=== PATIENT | female | born 1945 | race Caucasian/White ===

== ENCOUNTER → 2017-09-04 | Outpatient (CLI) | payer MEDICARE ==
[~2017-09-04] MED LIST: OMNIPAQUE 350 MG/ML, 100ML BOTTLE ONE
== END | disposition home or self-care (01) ==
LOC: RAD 14:43
PROVIDERS: ATTEND Family Medicine
DX: K86.89 Other specified diseases of pancreas (principal); K44.9 Diaphragmatic hernia without obstruction or gangrene; K76.89 Other specified diseases of liver
CPT/HCPCS: 74177; Q9967

== ENCOUNTER 2017-09-11 09:28 | Day surgery (SDC) | payer MEDICARE ==
[~2017-09-11] VITALS: Ht 167.6 cm; Wt 77.5 kg
[2017-09-11] MEDS ORDERED: CALC-451 PO (10:09)
[2017-09-11] MEDS ORDERED: LEVO125T PO (10:09)
[2017-09-11] MEDS ORDERED: LORA0.5P PO (10:09)
[2017-09-11] MEDS ORDERED: ESCI20TA10 PO (10:09)
[2017-09-11] MEDS ORDERED: ZOLP-413 PO (10:09)
[2017-09-11] MEDS ORDERED: PANT40TA5 PO (10:09)
[2017-09-11] MEDS ORDERED: CHLO4TAB PO (10:09)
[2017-09-11] MEDS ORDERED: POLY17PO5 PO (10:09)
[2017-09-11 10:17] VITALS: BP 127/75
[2017-09-11] MEDS ORDERED: FENTANYL PF 100 MCG/2ML ONE (10:20)
[2017-09-11] MEDS ORDERED: MIDAZOLAM 1 MG/ML, 2ML ONE (10:20)
[2017-09-11] MEDS ORDERED: LACTATED RINGERS 1,000 ML IV SCH (10:35)
[2017-09-11] MEDS ORDERED: GLYCOPYRROLATE 0.2MG/1ML, 5ML ONE (11:09)
[2017-09-11] MEDS ORDERED: EPHEDRINE 50 MG/ML, 1ML ONE (11:09)
[2017-09-11] MEDS ORDERED: PHENYLEPHRINE 10 MG/ML ONE (11:09)
[2017-09-11] MEDS ORDERED: SUCCINYLCHOLINE 20 MG/ML, 10ML ONE (11:27)
[2017-09-11] MEDS ORDERED: ONDANSETRON 2MG/ML, 2ML ONE (11:27)
[2017-09-11] MEDS ORDERED: ROCURONIUM 10 MG/ML,10ML ONE (11:27)
[2017-09-11] MEDS ORDERED: DEXAMETHASONE 4 MG/ML, 1ML ONE (11:27)
[2017-09-11] MEDS ORDERED: PROPOFOL 10 MG/ML, 20ML ONE (11:27)
[2017-09-11] MEDS ORDERED: OMNIPAQUE 350 MG/ML, 50 ML BOTTLE ONE (13:37)
[2017-09-11] MEDS ORDERED: HYDROcodone/APAP 7.5-325MG/15ML UDC PO PRN (14:00)
[2017-09-11] MEDS ORDERED: ONDANSETRON 2MG/ML, 2ML IVPush PRN (14:00)
[2017-09-11] MEDS ORDERED: ACETAMINOPHEN 325 MG TABLET PO PRN (14:00)
[2017-09-11] MEDS ORDERED: FENTANYL PF 100 MCG/2ML IV PRN (14:00)
[2017-09-11] MEDS ORDERED: OXYcodone 5 MG/5 ML ORAL.SOL UDC PO PRN (14:00)
== END 2017-09-11 16:35 | disposition home or self-care (01) ==
LOC: OUT 09:28
PROVIDERS: ATTEND Internal Medicine
DX: C25.9 Malignant neoplasm of pancreas, unspecified (principal); K83.1 Obstruction of bile duct; F41.9 Anxiety disorder, unspecified; Z87.39 Personal history of other diseases of the musculoskeletal system and connective tissue; Z98.890 Other specified postprocedural states; Z88.8 Allergy status to other drugs, medicaments and biological substances
CPT/HCPCS: 43242; 43274; 74018; 76000; 88172; 88173; 88177; 88307; 93005; J0330; J1100; J2250; J2370; J2405; J2704; J3010; J7120; Q9967; J3490; C1769; C2625

== ENCOUNTER 2017-10-10 07:42 | Day surgery (SDC) | payer MEDICARE ==
[~2017-10-10] VITALS: Ht 165.1 cm; Wt 76.4 kg
[~2017-10-10 07:42] MED LIST changes: +CALC-451 PO; +CHLO4TAB PO; +ESCI20TA10 PO; +LEVO125T PO; +LORA0.5P PO; -OMNIPAQUE 350 MG/ML, 100ML BOTTLE ONE; +PANT40TA5 PO; +POLY17PO5 PO; +ZOLP-413 PO
[2017-10-10 08:08] VITALS: BP 125/78
[2017-10-10] MEDS ORDERED: SODIUM CHLORIDE 0.9% 1,000 ML IV SCH (08:30)
[2017-10-10] MEDS ORDERED: CEFAZOLIN PMX 1GM/50ML 50 ML IV ONE (08:30)
[2017-10-10] MEDS ORDERED: LIDOCAINE 1%, 20ML ONE ×2 (08:50→09:00)
[2017-10-10] MEDS ORDERED: FLUMAZENIL 0.1 MG/1 ML, 5ML ONE (09:08)
[2017-10-10] MEDS ORDERED: NALOXONE 1 MG/ML, 2ML ONE (09:08)
[2017-10-10] MEDS ORDERED: MIDAZOLAM 1 MG/ML, 5ML ONE (09:08)
[2017-10-10] MEDS ORDERED: FENTANYL PF 100 MCG/2ML ONE (09:08)
== END 2017-10-10 12:05 ==
LOC: OUT 07:42
PROVIDERS: ATTEND Radiology Diagnostic Radiology
DX: Z45.2 Encounter for adjustment and management of vascular access device (principal); C25.9 Malignant neoplasm of pancreas, unspecified; Z88.1 Allergy status to other antibiotic agents; E03.9 Hypothyroidism, unspecified; Z90.710 Acquired absence of both cervix and uterus; Z87.39 Personal history of other diseases of the musculoskeletal system and connective tissue; Z72.89 Other problems related to lifestyle; Z88.8 Allergy status to other drugs, medicaments and biological substances
CPT/HCPCS: 36561; 76937; 77001; 99156; 99157; C1788; J0690; J1642; J2250; J3010; J3490; J7030; J2310

== ENCOUNTER → 2017-11-05 | Outpatient (CLI) | payer MEDICARE | LOC: RAD 14:03 | PROVIDERS: ATTEND Internal Medicine | DX: Z51.11 Encounter for antineoplastic chemotherapy (principal); C25.0 Malignant neoplasm of head of pancreas; G31.9 Degenerative disease of nervous system, unspecified | CPT/HCPCS: 70544; 70553 ==

== ENCOUNTER 2019-02-05 14:01 | Outpatient (CLI) | payer MEDICARE ==
[~2019-02-05 14:01] MED LIST changes: +ACET325T14 PO; +ASPI-515 PO; +CYAN250013 PO; +DIPH1TAB PO; +ESCI20TA PO; +GABA600T7 PO; +IBUP-1623 PO; +IRON15TA3 PO; +LACT1CAP40 PO; +LIPA1CAP4 PO; +LOPE2CAP94 PO; +LORA0.5T PO; +ONDA8TAB16 SL; +POTA10TA31 PO; +PROC10TA2 PO
[2019-02-05 14:25] VITALS: BP 134/72
== END 2019-02-05 23:59 | disposition home or self-care (01) ==
LOC: INFUSION 14:01
PROVIDERS: ATTEND Family Medicine
DX: Z45.2 Encounter for adjustment and management of vascular access device (principal); C25.0 Malignant neoplasm of head of pancreas; E03.9 Hypothyroidism, unspecified; G89.29 Other chronic pain; F41.9 Anxiety disorder, unspecified; Z90.710 Acquired absence of both cervix and uterus
CPT/HCPCS: 96523

== ENCOUNTER → 2019-09-01 | Outpatient (CLI) | payer MEDICARE ==
[~2019-09-01] MED LIST changes: +LOPE-114 PO; -LOPE2CAP94 PO
[2019-09-01 13:20] LABS: MEAN CORPUSCULAR HEMOGLOBIN 30.9 pg (27.0-34.8); MEAN CORPUSCULAR HGB CONC 33.3 g/dL (32.4-35.8); MEAN CORPUSCULAR VOLUME 92.9 fL (80-100); PLATELET COUNT 187 x10^3/uL (130-400); RED BLOOD COUNT 3.17 x10^6/uL (3.82-5.3); RED CELL DISTRIBUTION WIDTH 16.1 % (9.6-15.2)
[2019-09-01 13:27] LABS: % IRON SATURATION 15 % (20-55); ALBUMIN 2.9 g/dL (3.4-5.0); ANION GAP 6 mmol/L (5-15); CALCIUM 8.4 mg/dL (8.5-10.1); CHLORIDE 105 mmol/L (98-107); IRON LEVEL 47 mcg/dL (50-170); TOTAL IRON BINDING CAPACITY 313 mcg/dL (250-450)
[2019-09-01 13:32] LABS: ALANINE AMINOTRANSFERASE 94 U/L (12-78); ALKALINE PHOSPHATASE 407 U/L (45-117); BILIRUBIN,TOTAL 0.4 mg/dL (0.2-1.0); CREATININE 0.69 mg/dL (0.55-1.02); TOTAL PROTEIN 6.5 g/dL (6.4-8.2)
[2019-09-01 13:59] LABS: BASOPHILS # (AUTO) 0.01 x10^3/uL (0-0.1); BASOPHILS % (AUTO) 1 % (0-1); EOSINOPHILS # (AUTO) 0.16 x10^3/uL (0-0.4); EOSINOPHILS % (AUTO) 7 % (1-7); LYMPHOCYTES # (AUTO) 0.29 x10^3/uL (1-3.4); LYMPHOCYTES % (AUTO) 12 % (22-44); MD SCAN; MONOCYTES # (AUTO) 0.39 x10^3/uL (0.2-0.8); MONOCYTES % (AUTO) 17 % (2-9); NEUTROPHILS # (AUTO) 1.54 x10^3/uL (1.8-6.8); NEUTROPHILS % (AUTO) 64 % (42-75)
== END | disposition home or self-care (01) ==
LOC: LAB 12:47
PROVIDERS: ATTEND Internal Medicine Hematology & Oncology
DX: D64.9 Anemia, unspecified (principal); C25.9 Malignant neoplasm of pancreas, unspecified
CPT/HCPCS: 36415; 80053; 82607; 83540; 83550; 85025

== ENCOUNTER → 2019-09-15 | Outpatient (CLI) | payer MEDICARE ==
[2019-09-15 12:24] LABS: MEAN CORPUSCULAR HEMOGLOBIN 30.7 pg (27.0-34.8); MEAN CORPUSCULAR VOLUME 93.2 fL (80-100); MEAN PLATELET VOLUME 6.7 fL (7.4-10.4); PLATELET COUNT 201 x10^3/uL (130-400); RED BLOOD COUNT 3.25 x10^6/uL (3.82-5.3); RED CELL DISTRIBUTION WIDTH 17.3 % (9.6-15.2)
[2019-09-15 12:27] LABS: ALANINE AMINOTRANSFERASE 83 U/L (12-78); ALBUMIN 2.9 g/dL (3.4-5.0); CREATININE 0.67 mg/dL (0.55-1.02)
[2019-09-15 12:30] LABS: ALKALINE PHOSPHATASE 356 U/L (45-117); BILIRUBIN,TOTAL 0.4 mg/dL (0.2-1.0); TOTAL PROTEIN 6.4 g/dL (6.4-8.2)
[2019-09-15 12:44] LABS: ANION GAP 7 mmol/L (5-15); CHLORIDE 105 mmol/L (98-107)
[2019-09-15 13:01] LABS: BASOPHILS # (AUTO) 0.01 x10^3/uL (0-0.1); BASOPHILS % (AUTO) 0 % (0-1); EOSINOPHILS # (AUTO) 0.23 x10^3/uL (0-0.4); EOSINOPHILS % (AUTO) 9 % (1-7); LYMPHOCYTES # (AUTO) 0.33 x10^3/uL (1-3.4); LYMPHOCYTES % (AUTO) 12 % (22-44); MD SCAN; MONOCYTES # (AUTO) 0.44 x10^3/uL (0.2-0.8); MONOCYTES % (AUTO) 16 % (2-9); NEUTROPHILS # (AUTO) 1.72 x10^3/uL (1.8-6.8); NEUTROPHILS % (AUTO) 63 % (42-75)
== END | disposition home or self-care (01) ==
LOC: LAB 11:58
PROVIDERS: ATTEND Internal Medicine Hematology & Oncology
DX: C25.9 Malignant neoplasm of pancreas, unspecified (principal)
CPT/HCPCS: 36415; 80053; 85025; 86301

== ENCOUNTER → 2019-09-29 | Outpatient (CLI) | payer MEDICARE ==
[2019-09-29 13:28] LABS: BASOPHILS % (AUTO) 0 % (0-1); EOSINOPHILS # (AUTO) 0.14 x10^3/uL (0-0.4); EOSINOPHILS % (AUTO) 3 % (1-7); LYMPHOCYTES # (AUTO) 0.17 x10^3/uL (1-3.4); LYMPHOCYTES % (AUTO) 3 % (22-44); MD NO; MEAN CORPUSCULAR HEMOGLOBIN 30.6 pg (27.0-34.8); MEAN CORPUSCULAR HGB CONC 32.7 g/dL (32.4-35.8); MEAN CORPUSCULAR VOLUME 93.6 fL (80-100); MEAN PLATELET VOLUME 6.2 fL (7.4-10.4); MONOCYTES # (AUTO) 0.54 x10^3/uL (0.2-0.8); MONOCYTES % (AUTO) 10 % (2-9); NEUTROPHILS # (AUTO) 4.47 x10^3/uL (1.8-6.8); NEUTROPHILS % (AUTO) 84 % (42-75); PLATELET COUNT 172 x10^3/uL (130-400); RED BLOOD COUNT 3.34 x10^6/uL (3.82-5.3); RED CELL DISTRIBUTION WIDTH 17.8 % (9.6-15.2)
[2019-09-29 13:42] LABS: ALANINE AMINOTRANSFERASE 110 U/L (12-78); ANION GAP 5 mmol/L (5-15); CALCIUM 8.2 mg/dL (8.5-10.1); CHLORIDE 103 mmol/L (98-107); CREATININE 0.62 mg/dL (0.55-1.02)
[2019-09-29 13:44] LABS: ALKALINE PHOSPHATASE 345 U/L (45-117); BILIRUBIN,TOTAL 0.5 mg/dL (0.2-1.0); TOTAL PROTEIN 6.4 g/dL (6.4-8.2)
== END | disposition home or self-care (01) ==
LOC: LAB 13:10
PROVIDERS: ATTEND Internal Medicine Hematology & Oncology
DX: C25.9 Malignant neoplasm of pancreas, unspecified (principal)
CPT/HCPCS: 36415; 80053; 85025

== ENCOUNTER 2019-10-15 00:25 | Emergency (ER) | payer MEDICARE ==
[2019-10-15 01:26] LABS: RAPID INFLUENZA A Negative (Negative); RAPID INFLUENZA B Negative (Negative)
[2019-10-15 01:37] LABS: BASOPHILS # (AUTO) 0.01 x10^3/uL (0-0.1); BASOPHILS % (AUTO) 0 % (0-1); EOSINOPHILS % (AUTO) 2 % (1-7); LYMPHOCYTES # (AUTO) 0.33 x10^3/uL (1-3.4); LYMPHOCYTES % (AUTO) 4 % (22-44); MD NO; MEAN CORPUSCULAR HEMOGLOBIN 30.5 pg (27.0-34.8); MEAN CORPUSCULAR HGB CONC 33.1 g/dL (32.4-35.8); MEAN CORPUSCULAR VOLUME 92.1 fL (80-100); MEAN PLATELET VOLUME 7.5 fL (7.4-10.4); MONOCYTES # (AUTO) 0.98 x10^3/uL (0.2-0.8); MONOCYTES % (AUTO) 11 % (2-9); NEUTROPHILS # (AUTO) 7.14 x10^3/uL (1.8-6.8); NEUTROPHILS % (AUTO) 82 % (42-75); PLATELET COUNT 222 x10^3/uL (130-400); RED BLOOD COUNT 3.04 x10^6/uL (3.82-5.3); RED CELL DISTRIBUTION WIDTH 17.5 % (9.6-15.2)
[2019-10-15 01:45] LABS: ALANINE AMINOTRANSFERASE 56 U/L (12-78); ALBUMIN 2.5 g/dL (3.4-5.0); ANION GAP 5 mmol/L (5-15); CHLORIDE 101 mmol/L (98-107); CREATININE 0.67 mg/dL (0.55-1.02)
[2019-10-15 01:47] LABS: ALKALINE PHOSPHATASE 299 U/L (45-117); BILIRUBIN,TOTAL 0.6 mg/dL (0.2-1.0); TOTAL PROTEIN 6.4 g/dL (6.4-8.2)
--- NOTE | 2019-10-15 02:21 | NUR ---
Break RN: patient to CT scan.
[2019-10-15] MEDS ORDERED: OMNIPAQUE 350 MG/ML, 100ML BOTTLE ONE (02:28)
--- NOTE | 2019-10-15 02:32 | NUR ---
back from CT scan. awaiting result.
[2019-10-15 03:02] VITALS: BP 125/77
[2019-10-15 04:59] LABS: MICROSCOPIC NOT IND
[2019-10-15 05:02] LABS: CULTURE INDICATED? NO
== END 2019-10-15 04:29 | disposition home or self-care (01) ==
LOC: ED 02:28
DX: R10.11 Right upper quadrant pain (principal); R50.9 Fever, unspecified; R51 Headache; Z85.07 Personal history of malignant neoplasm of pancreas
CPT/HCPCS: 36415; 71046; 71275; 74177; 80053; 81003; 83605; 83690; 84145; 85025; 87040; 87400; 93005; 99285; Q9967

== ENCOUNTER 2019-11-25 10:29 | Emergency (ER) | payer MEDICARE ==
[~2019-11-25] VITALS: Ht 167.6 cm; Wt 59.9 kg
[2019-11-25] MEDS ORDERED: SODIUM CHLORIDE FLUSH 10ML SYR IVF ONE (11:00)
--- NOTE | 2019-11-25 11:00 | NUR ---
THIS IS A 74 YO FEMALE WHO PRESENTS TO THE ER C/O "COFFEE GROUND STOOL" SINCE YESTERDAY. PT STOPPED TAKING HER ASA AND LASIX YESTERDAY. PT AO X 4. SKIN WARM AND DRY, SLIGHTLY PALE. RESP EVEN AND UNLABORED. PT DENIES PAIN APART FROM CHRONIC PAIN. FAMILY MEMBER AT BEDSIDE. CALL LIGHT WITHIN REACH. WILL CONT TO MONITOR PT.
[2019-11-25] MEDS ORDERED: LEVO200T PO (11:09)
[2019-11-25 11:50] LABS: MEAN CORPUSCULAR HEMOGLOBIN 29.8 pg (27.0-34.8); MEAN CORPUSCULAR HGB CONC 32.7 g/dL (32.4-35.8); MEAN CORPUSCULAR VOLUME 91.3 fL (80-100); MEAN PLATELET VOLUME 6.7 fL (7.4-10.4); PLATELET COUNT 303 x10^3/uL (130-400); RED BLOOD COUNT 2.46 x10^6/uL (3.82-5.3); RED CELL DISTRIBUTION WIDTH 18.4 % (9.6-15.2)
[2019-11-25 11:56] LABS: ALANINE AMINOTRANSFERASE 28 U/L (12-78); ANION GAP 4 mmol/L (5-15); CALCIUM 8.4 mg/dL (8.5-10.1); CHLORIDE 103 mmol/L (98-107); CREATININE 0.66 mg/dL (0.55-1.02)
--- NOTE | 2019-11-25 11:57 | NUR ---
REPORT TO DG PLAZA WHO ASSUMED CARE OF PT.
[2019-11-25 11:58] LABS: ALKALINE PHOSPHATASE 258 U/L (45-117); BILIRUBIN,TOTAL 0.7 mg/dL (0.2-1.0); TOTAL PROTEIN 7.5 g/dL (6.4-8.2)
[2019-11-25 12:12] LABS: ANISOCYTOSIS 1+; BASOPHILS # (AUTO) 0.04 x10^3/uL (0-0.1); BASOPHILS % (AUTO) 1 % (0-1); EOSINOPHILS # (AUTO) 0.17 x10^3/uL (0-0.4); EOSINOPHILS % (AUTO) 4 % (1-7); LYMPHOCYTES # (AUTO) 0.28 x10^3/uL (1-3.4); LYMPHOCYTES % (AUTO) 7 % (22-44); MD MORPH REVIEW ONLY; MONOCYTES # (AUTO) 0.29 x10^3/uL (0.2-0.8); MONOCYTES % (AUTO) 7 % (2-9); NEUTROPHILS # (AUTO) 3.37 x10^3/uL (1.8-6.8); NEUTROPHILS % (AUTO) 81 % (42-75)
[2019-11-25 12:13] LABS: <PLATELET ESTIMATE> ADEQUATE; <PLT MORPHOLOGY> NORMAL PLT MORPH; STOMATOCYTES 1+
--- NOTE | 2019-11-25 12:34 | NUR ---
Spoke with provider regarding low H/H, md awaiting at this time further test to consider transfusion.
[2019-11-25 13:08] VITALS: BP 114/82
[2019-11-25] MEDS ORDERED: OMNIPAQUE 350 MG/ML, 100ML BOTTLE ONE (13:47)
--- NOTE | 2019-11-25 14:17 | NUR ---
Pt unable to provide stool at this time.
[2019-11-25 16:28] LABS: CLOSTRIDIUM DIFFICILE ANTIGEN NEGATIVE; CLOSTRIDIUM DIFFICILE TOXIN NEGATIVE (Negative)
--- NOTE | 2019-11-25 16:45 | NUR ---
dr aguirre spoke with dr carreno
--- NOTE | 2019-11-25 16:48 | NUR ---
dr purcell spoke with dr oneal
--- NOTE | 2019-11-25 17:58 | NUR ---
Report called to rasheed castrejon
--- NOTE | 2019-11-25 19:14 | NUR ---
Pt left AMA.
[2019-12-02] MEDS ORDERED: HYDR-3237 PO (15:19)
[2019-12-02] MEDS ORDERED: CEFT2VIA53 IV (15:19)
[2019-12-02] MEDS ORDERED: IBUP-1902 PO (15:19)
== END 2019-11-25 19:16 | disposition home or self-care (01) ==
LOC: ED 10:40 → UNDOADMIN 17:07 → EDIP 17:07
DX: K92.1 Melena (principal); D64.9 Anemia, unspecified; J86.9 Pyothorax without fistula; L02.211 Cutaneous abscess of abdominal wall; Z85.07 Personal history of malignant neoplasm of pancreas
CPT/HCPCS: 36415; 74177; 80053; 83605; 85025; 86850; 86900; 87324; 89055; 99285; Q9967

== ENCOUNTER 2019-12-16 16:22 | Outpatient (CLI) | payer MEDICARE ==
[~2019-12-16 16:22] MED LIST changes: +CEFT2VIA53 IV; +HYDR-3237 PO; +IBUP-1902 PO; +LEVO200T PO
[2019-12-16 16:55] LABS: ALBUMIN 2.5 g/dL (3.4-5.0); ANION GAP 8 mmol/L (5-15); CALCIUM 8.3 mg/dL (8.5-10.1); CHLORIDE 99 mmol/L (98-107)
[2019-12-16 17:00] LABS: ALANINE AMINOTRANSFERASE 27 U/L (12-78); ALKALINE PHOSPHATASE 244 U/L (45-117); BILIRUBIN,TOTAL 0.4 mg/dL (0.2-1.0); CREATININE 0.78 mg/dL (0.55-1.02); TOTAL PROTEIN 7.8 g/dL (6.4-8.2)
[2019-12-16 17:03] LABS: BASOPHILS # (AUTO) 0.04 x10^3/uL (0-0.1); BASOPHILS % (AUTO) 1 % (0-1); EOSINOPHILS # (AUTO) 0.13 x10^3/uL (0-0.4); EOSINOPHILS % (AUTO) 3 % (1-7); LYMPHOCYTES # (AUTO) 0.42 x10^3/uL (1-3.4); LYMPHOCYTES % (AUTO) 9 % (22-44); MD NO; MEAN CORPUSCULAR HEMOGLOBIN 29.8 pg (27.0-34.8); MEAN CORPUSCULAR HGB CONC 32.1 g/dL (32.4-35.8); MEAN CORPUSCULAR VOLUME 92.6 fL (80-100); MEAN PLATELET VOLUME 6.6 fL (7.4-10.4); MONOCYTES # (AUTO) 0.37 x10^3/uL (0.2-0.8); MONOCYTES % (AUTO) 8 % (2-9); NEUTROPHILS # (AUTO) 3.64 x10^3/uL (1.8-6.8); NEUTROPHILS % (AUTO) 79 % (42-75); PLATELET COUNT 334 x10^3/uL (130-400); RED BLOOD COUNT 3.22 x10^6/uL (3.82-5.3); RED CELL DISTRIBUTION WIDTH 17.6 % (9.6-15.2)
== END 2019-12-16 23:59 | disposition home or self-care (01) ==
LOC: LAB 16:22
PROVIDERS: ATTEND Internal Medicine Hematology & Oncology
DX: C78.00 Secondary malignant neoplasm of unspecified lung (principal); Z85.07 Personal history of malignant neoplasm of pancreas
CPT/HCPCS: 36415; 80053; 85025; 86300

== ENCOUNTER 2020-01-20 13:44 | Outpatient (CLI) | payer MEDICARE ==
[2020-01-20 15:54] LABS: BASOPHILS # (AUTO) 0.02 x10^3/uL (0-0.1); BASOPHILS % (AUTO) 0 % (0-1); EOSINOPHILS # (AUTO) 0.15 x10^3/uL (0-0.4); EOSINOPHILS % (AUTO) 3 % (1-7); LYMPHOCYTES # (AUTO) 0.36 x10^3/uL (1-3.4); LYMPHOCYTES % (AUTO) 6 % (22-44); MD NO; MEAN CORPUSCULAR HEMOGLOBIN 30.7 pg (27.0-34.8); MEAN CORPUSCULAR HGB CONC 32.5 g/dL (32.4-35.8); MEAN CORPUSCULAR VOLUME 94.3 fL (80-100); MEAN PLATELET VOLUME 7.5 fL (7.4-10.4); MONOCYTES # (AUTO) 0.43 x10^3/uL (0.2-0.8); MONOCYTES % (AUTO) 8 % (2-9); NEUTROPHILS # (AUTO) 4.74 x10^3/uL (1.8-6.8); NEUTROPHILS % (AUTO) 83 % (42-75); PLATELET COUNT 331 x10^3/uL (130-400); RED BLOOD COUNT 3.55 x10^6/uL (3.82-5.3); RED CELL DISTRIBUTION WIDTH 18.3 % (9.6-15.2)
[2020-01-20 16:14] LABS: ALBUMIN 2.8 g/dL (3.4-5.0); ANION GAP 5 mmol/L (5-15); CALCIUM 8.3 mg/dL (8.5-10.1); CHLORIDE 102 mmol/L (98-107)
[2020-01-20 16:20] LABS: ALANINE AMINOTRANSFERASE 78 U/L (12-78); ALKALINE PHOSPHATASE 361 U/L (45-117); BILIRUBIN,TOTAL 0.4 mg/dL (0.2-1.0); CREATININE 0.79 mg/dL (0.55-1.02); TOTAL PROTEIN 6.8 g/dL (6.4-8.2)
== END 2020-01-20 23:59 | disposition home or self-care (01) ==
LOC: CFH 13:44
PROVIDERS: ATTEND Family Medicine
DX: Z51.11 Encounter for antineoplastic chemotherapy (principal); C25.0 Malignant neoplasm of head of pancreas
CPT/HCPCS: 36415; 80053; 85025; 86301

== ENCOUNTER 2020-02-05 10:39 | Outpatient (CLI) | payer MEDICARE ==
[2020-02-05] MEDS ORDERED: OMNIPAQUE 350 MG/ML, 100ML BOTTLE ONE (14:52)
== END 2020-02-05 23:59 | disposition home or self-care (01) ==
LOC: CFH 10:39
PROVIDERS: ATTEND Pathology Hematology
DX: C25.0 Malignant neoplasm of head of pancreas (principal); K76.89 Other specified diseases of liver; Z93.4 Other artificial openings of gastrointestinal tract status
CPT/HCPCS: 74177; Q9967

== ENCOUNTER 2020-04-20 11:30 | Emergency (ER) | payer MEDICARE ==
[~2020-04-20] VITALS: Ht 167.6 cm; Wt 55.0 kg
[~2020-04-20 11:30] MED LIST changes: -PANT40TA5 PO; +PANT40TA6 PO
--- NOTE | 2020-04-20 12:07 | NUR ---
PT TO ROOM, RN AWARE.
--- NOTE | 2020-04-20 12:12 | NUR ---
PT CAME IN AFTER HAVING A SYNCONPAL EPISODE AT HER ONCOLOGY CLINIC TODAY. PT DOESNT RECALL THE EVENT. PT WAS TOLD HER BP WAS "LOW". PT STATES SHE HIT HER HEAD BUT THERE IS NO OBVIOUSLY DEFORMITY NOTED. 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 PT IS ACCOMPANIED BY FAMILY MEMBER. CONNECTED TO MONITORING EQUIPMENT. EKG HAS BEEN COMPLETED.
--- NOTE | 2020-04-20 12:50 | NUR ---
REPORT FROM NISHA CONTE WITH ASSESSMENT PATIENT: NO FOCAL DEFICITS, GOOD COLOR, VSS
--- NOTE | 2020-04-20 12:59 | NUR ---
TO CT SCAN
[2020-04-20] MEDS ORDERED: SODIUM CHLORIDE 0.9% 1,000ML IVBOLUS ONE (13:00)
[2020-04-20] MEDS ORDERED: SODIUM CHLORIDE FLUSH 10ML SYR IVF ONE (13:00)
--- NOTE | 2020-04-20 13:35 | NUR ---
ORTHOSTATIC VITAL OBTAINED: LYIN, 143/62 SITTIN, 139/65 STANDIN, 109/74 PROVIDER MADE AWARE AFTER MUCH RE-DIRECTION:PATIENT AGREED TO LABS- TO ACCESS PORT SHORTLY
[2020-04-20 13:51] LABS: MICROSCOPIC AUTO
--- NOTE | 2020-04-20 13:59 | NUR ---
RIGHT CHEST PORT ACCESSED-AFTER WASTE-BASIC LABS DRAWN TO CXR AT 1359
[2020-04-20 14:12] LABS: MEAN CORPUSCULAR HEMOGLOBIN 31.7 pg (27.0-34.8); MEAN CORPUSCULAR HGB CONC 31.9 g/dL (32.4-35.8); MEAN CORPUSCULAR VOLUME 99.3 fL (80-100); MEAN PLATELET VOLUME 6.8 fL (7.4-10.4); PLATELET COUNT 272 x10^3/uL (130-400); RED BLOOD COUNT 3.36 x10^6/uL (3.82-5.3); RED CELL DISTRIBUTION WIDTH 19.1 % (9.6-15.2)
[2020-04-20 14:23] LABS: ALANINE AMINOTRANSFERASE 51 U/L (12-78); ALBUMIN 2.9 g/dL (3.4-5.0); ANION GAP 7 mmol/L (5-15); CALCIUM 8.3 mg/dL (8.5-10.1); CHLORIDE 102 mmol/L (98-107); CREATININE 0.71 mg/dL (0.55-1.02)
[2020-04-20 14:28] LABS: ALKALINE PHOSPHATASE 402 U/L (45-117); BILIRUBIN,TOTAL 0.4 mg/dL (0.2-1.0); TOTAL PROTEIN 6.7 g/dL (6.4-8.2); TROPONIN I < 0.015 ng/mL (0.000-0.045)
--- NOTE | 2020-04-20 14:34 | NUR ---
ALL TESTING RESULTED-PROVIDER MADE AWARE
[2020-04-20 14:42] LABS: BASOPHILS # (AUTO) 0.08 x10^3/uL (0-0.1); BASOPHILS % (AUTO) 0 % (0-1); EOSINOPHILS # (AUTO) 0.36 x10^3/uL (0-0.4); EOSINOPHILS % (AUTO) 2 % (1-7); LYMPHOCYTES # (AUTO) 0.78 x10^3/uL (1-3.4); LYMPHOCYTES % (AUTO) 4 % (22-44); MD SCAN; MONOCYTES # (AUTO) 0.97 x10^3/uL (0.2-0.8); MONOCYTES % (AUTO) 5 % (2-9); NEUTROPHILS # (AUTO) 17.14 x10^3/uL (1.8-6.8); NEUTROPHILS % (AUTO) 89 % (42-75)
[2020-04-20 14:52] LABS: FREE T4 (FREE THYROXINE) 1.21 ng/dL (0.76-1.46)
[2020-04-20] MEDS ORDERED: ASPI-515 PO (15:00)
[2020-04-20] MEDS ORDERED: HYDR-3245 PO (15:00)
[2020-04-20] MEDS ORDERED: FAMO-79 PO (15:00)
[2020-04-20] MEDS ORDERED: [UNRECOGNIZED DRUG - CODE] PO (15:00)
[2020-04-20] MEDS ORDERED: SODI1TAB PO (15:02)
--- NOTE | 2020-04-20 15:28 | NUR ---
1L NS COMPLETE TO CT SCAN
[2020-04-20] MEDS ORDERED: OMNIPAQUE 350 MG/ML, 100ML BOTTLE ONE (15:55)
--- NOTE | 2020-04-20 16:44 | NUR ---
ALL TESTING RESULTED. PROVIDER MADE AWARE DESPITE EARLIER FLUIDS -PATIENT REPORTS "I STILL FEEL WEAKER WHEN I GET UP"
[2020-04-20 16:45] VITALS: BP 145/72
--- NOTE | 2020-04-20 17:34 | NUR ---
PORT DE-ACCESSED AFTER HEPARIN FLUSH 100UNITS/ML (3ML)
--- NOTE | 2020-04-20 17:36 | NUR ---
PATIENT PROVIDED WITH RADIOLOGY DISC LAB AT BEDSIDE FOR 2 SETS OF BLOOD CULTURES DISCHARGED HOME AFTER THOROUGH REVIEW OF POC
== END 2020-04-20 17:47 | disposition home or self-care (01) ==
LOC: ED 13:25
DX: R55 Syncope and collapse (principal); R42 Dizziness and giddiness; Z90.49 Acquired absence of other specified parts of digestive tract; Z90.710 Acquired absence of both cervix and uterus; Z88.6 Allergy status to analgesic agent; Z85.07 Personal history of malignant neoplasm of pancreas
CPT/HCPCS: 36415; 70450; 71046; 72125; 74170; 80053; 81001; 83690; 84145; 84439; 84443; 84484; 85025; 87040; 87086; 93005; 96360; 99285; J7030; Q9967

== ENCOUNTER → 2020-06-30 | Outpatient (CLI) | payer MEDICARE ==
[~2020-06-30] MED LIST changes: +FAMO-79 PO; +HYDR-3245 PO; +OMNIPAQUE 350 MG/ML, 100ML BOTTLE ONE; +SODI1TAB PO; +[UNRECOGNIZED DRUG - CODE] PO
== END | disposition home or self-care (01) ==
LOC: CFH 14:10
PROVIDERS: ATTEND Pathology Hematology
DX: C25.0 Malignant neoplasm of head of pancreas (principal); R91.8 Other nonspecific abnormal finding of lung field; K76.89 Other specified diseases of liver
CPT/HCPCS: 71260; 74177; Q9967